=== PATIENT | male | born 1985 | race Hispanic/Latino ===

== ENCOUNTER 2022-10-08 21:02 | Emergency (ER) | payer SELFPAY ==
[~2022-10-08] VITALS: Ht 175.3 cm; Wt 92.5 kg
[2022-10-08] MEDS ORDERED: KETOROLAC TROMETHAMINE 30 MG/ML VIAL IV STA (21:40)
[2022-10-08] MEDS ORDERED: CEFTRIAXONE 1 GM VIAL IM ONE (21:45)
[2022-10-08] MEDS ORDERED: SODIUM CHLORIDE 0.9% 1000ML 1,000 ML IV ONE ×2 (21:45→22:30)
[2022-10-08] MEDS ORDERED: IOPAMIDOL 370 MG/ML 100 ML INFUS..BTL INJ ONE (21:54)
[2022-10-08] MEDS ORDERED: KETOROLAC TROMETHAMINE 30 MG/ML VIAL ONE (21:58)
[2022-10-08] MEDS ORDERED: SODIUM CHLORIDE 0.9% 1000ML 1,000 ML ONE ×2 (21:59→22:39)
[2022-10-08] MEDS ORDERED: CEFTRIAXONE 1 GM VIAL ONE (21:59)
[2022-10-08] MEDS ORDERED: METHYLPREDNISOLONE SOD SUCC 125 MG/2ML VIAL IV ONE (23:45)
[2022-10-09] MEDS ORDERED: METHYLPREDNISOLONE SOD SUCC 125 MG/2ML VIAL ONE (00:16)
[2022-10-09 01:23] VITALS: BP 119/70
== END 2022-10-09 01:23 | disposition other institution (70) ==
LOC: FSED 21:19
DX: A41.9 Sepsis, unspecified organism (principal); J36 Peritonsillar abscess; Z20.822 Contact with and (suspected) exposure to COVID-19
CPT/HCPCS: 70491; 80053; 83605; 85025; 87040; 96374 ×2; 99284; J0696; J1885; J2930; J7030; Q9967; U0002